=== PATIENT | male | born 1950 | race Caucasian/White ===

== ENCOUNTER → 2018-07-05 14:35 | Outpatient (CLI) | payer MEDICARE, BC, SELFPAY ==
[2018-07-05 17:08] LABS: Blood Urea Nitrogen 16 mg/dL (7-18); Creatinine,Serum 1.25 mg/dL (0.70-1.30); Estimated Glomerular Filt Rate 58 ml/min (>60); GFR (African American) 70 ML/MIN (>60)
== END ==
PROVIDERS: Visit Provider Family Medicine
DX: Z01.818 Encounter for other preprocedural examination (principal)
CPT/HCPCS: 36415; 82565; 84520

== ENCOUNTER → 2018-07-09 08:24 | Outpatient (CLI) | payer MEDICARE, BC, SELFPAY ==
--- NOTE | 2018-07-09 08:28 | CT_ITS ---
CT abdomen w con CLINICAL INDICATION: ITS.REASON: ELEVATED AMYLASE, UPPER ABD PAIN ORDERING PHYSICIAN: Richy Wang MD PATIENT AGE: 67 years COMPARISON: None TECHNIQUE: Axial images obtained with sagittal and coronal reformats. All CT scans at the facility use one or more dose reduction, viz: automated exposure control, ma/kV adjustment per patient size (including targeted exams where dose is matched to indication, i.e. head), or iterative reconstruction technique. PROCEDURE: Oral Contrast: Redicat IV Contrast: 75 mL's of Isovue-370. Images are obtained at 30 seconds, 60 seconds, and 5 minute delayed following the intravenous ministration of contrast FINDINGS: There is a 4 mm noncalcified nodule in the right lung base posterior laterally with some groundglass density noted at this region around the nodule nonspecific. Liver, spleen, and adrenal glands have an unremarkable appearance. There is no evidence of pancreatic mass or peripancreatic edema or inflammation. There is a small calcific density in the head of the pancreas which is nonspecific. No peripancreatic fluid collections. There are small parapelvic renal cysts which are nonspecific. The kidneys have an otherwise unremarkable appearance. 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 The superior mesenteric artery has an unremarkable appearance. Atheromatous changes involve the abdominal aorta. The renal arteries are fairly small with mild stenosis of the ostium of the right renal artery. No acute bony anomalies. IMPRESSION: 1. No evidence of pancreatitis or pancreatic mass. No peripancreatic fluid collections. 2. 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
== END ==
PROVIDERS: PCP Family Medicine; Visit Provider Family Medicine
DX: R10.10 Upper abdominal pain, unspecified (principal); R74.8 Abnormal levels of other serum enzymes
CPT/HCPCS: 74160; Q9967

== ENCOUNTER → 2018-10-11 08:14 | Outpatient (POV) | payer MEDICARE, BC, SELFPAY | PROVIDERS: Visit Provider Nurse Practitioner Acute Care | DX: Z00.00 Encounter for general adult medical examination without abnormal findings (principal) ==

== ENCOUNTER → 2018-11-09 11:52 | Outpatient (CLI) | payer MEDICARE, BC, SELFPAY ==
[2018-11-09 13:10] LABS: Alanine Aminotransferase 47 U/L (12-78); Albumin Level 4.2 gm/dL (3.4-5.0); Alkaline Phosphatase 67 U/L (46-116); Amylase 131 U/L (25-115); Aspartate Amino Transferase 26 U/L (15-37); Bilirubin,Direct 0.2 mg/dL (0.0-0.2); Bilirubin,Indirect 0.5 mg/dL (0.0-0.9); Bilirubin,Total 0.7 mg/dL (0.2-1.0); Total Protein,Serum 7.5 gm/dL (6.4-8.2)
[2018-11-09 13:17] LABS: Lipase 885 u/L (73-393)
== END ==
PROVIDERS: Visit Provider Internal Medicine Gastroenterology
DX: R94.5 Abnormal results of liver function studies (principal)
CPT/HCPCS: 36415; 80076; 82150; 83690

== ENCOUNTER → 2018-12-14 10:09 | Outpatient (CLI) | payer MEDICARE, BC, SELFPAY ==
[2018-12-14 10:46] LABS: Basophils # 0.1 K/mm3 (0-0.2); Basophils % 1.1 % (0.1-2.0); Eosinophils # 0.4 K/mm3 (0.0-0.4); Eosinophils % 7.5 % (0.1-12.0); Hematocrit 45.3 % (42.0-52.0); Lymphocytes # 2.1 K/mm3 (0.7-4.5); Lymphocytes % 37.2 % (10-50); Mean Corpuscular HGB Conc 33.2 g/dL (31.8-35.4); Mean Corpuscular Hemoglobin 29.2 pg (27.0-31.2); Mean Corpuscular Volume 88.1 fl (80-94); Mean Platelet Volume 7.5 fl (7.4-10.4); Monocytes # 0.3 K/mm3 (0.1-1.0); Monocytes % 5.3 % (1.7-9.3); Neutrophils # 2.8 K/mm3 (1.8-7.8); Platelet Count 279 K/mm3 (142-424); Red Blood Count 5.14 M/mm3 (4.60-6.20); Red Cell Distribution Width 14.5 % (11.5-17.5); White Blood Count 5.8 K/mm3 (4.8-10.8)
[2018-12-14 11:36] LABS: Alanine Aminotransferase 35 U/L (12-78); Albumin Level 3.9 gm/dL (3.4-5.0); Albumin/Globulin Ratio 1.3 (1.1-1.8); Alkaline Phosphatase 56 U/L (46-116); Amylase 90 U/L (25-115); Anion Gap 13.2 mEq/L (5-15); Aspartate Amino Transferase 23 U/L (15-37); Bilirubin,Total 0.7 mg/dL (0.2-1.0); Blood Urea Nitrogen 18 mg/dL (7-18); Calcium 9.2 mg/dL (8.5-10.1); Carbon Dioxide 27 mmol/L (21.0-32.0); Chloride 107 mmol/L (98-107); Creatinine,Serum 1.21 mg/dL (0.70-1.30); Estimated Glomerular Filt Rate 60 ml/min (>60); GFR (African American) 72 ML/MIN (>60); Globulin 3.1 gm/dl (1.3-3.2); Glucose 119 mg/dL (74-106); Lipase 224 u/L (73-393); Potassium 4.2 mmoL/L (3.5-5.1); Sodium 143 mmol/L (136-145)
== END ==
PROVIDERS: Visit Provider Nurse Practitioner Acute Care
DX: R94.5 Abnormal results of liver function studies (principal)
CPT/HCPCS: 36415; 80053; 82150; 83690; 85025

== ENCOUNTER → 2019-01-25 08:39 | Outpatient (POV) | payer MEDICARE, BC, SELFPAY | PROVIDERS: Visit Provider Otolaryngology | DX: Z00.00 Encounter for general adult medical examination without abnormal findings (principal) ==

== ENCOUNTER → 2020-02-21 11:10 | Outpatient (CLI) | payer MEDICARE, BC, SELFPAY ==
[2020-02-21 13:14] LABS: Uric Acid 8.4 mg/dl (3.5-8.5)
== END ==
PROVIDERS: Visit Provider Podiatrist Foot & Ankle Surgery
DX: Z01.818 Encounter for other preprocedural examination (principal)
CPT/HCPCS: 36415; 84550

== ENCOUNTER → 2021-05-22 08:26 | Outpatient (CLI) | payer MEDICARE, BC, SELFPAY | PROVIDERS: PCP Family Medicine; Visit Provider Nurse Practitioner | DX: Z20.822 Contact with and (suspected) exposure to COVID-19 (principal) | CPT/HCPCS: C9803; U0003; U0005 ==

== ENCOUNTER → 2021-08-20 11:06 | Outpatient (CLI) | payer MEDICARE, BC, SELFPAY ==
[2021-08-20 12:14] LABS: Uric Acid 4.2 mg/dl (3.5-8.5)
== END ==
PROVIDERS: Visit Provider Podiatrist Foot & Ankle Surgery
DX: M10.9 Gout, unspecified (principal)
CPT/HCPCS: 36415; 84550

== ENCOUNTER → 2021-10-28 11:44 | Outpatient (CLI) | payer MEDICARE, BC, SELFPAY | PROVIDERS: PCP Family Medicine; Visit Provider Nurse Practitioner | DX: Z20.822 Contact with and (suspected) exposure to COVID-19 (principal) | CPT/HCPCS: C9803; U0003; U0005 ==

== ENCOUNTER → 2023-03-31 12:40 | Outpatient (CLI) | payer MEDICARE, BC, SELFPAY ==
--- NOTE | 2023-03-31 12:44 | CT_ITS ---
FINAL REPORT TECHNIQUE: Axial CT images were obtained through the sinuses/facial bones. Coronal reformats were obtained. This study was performed with techniques to keep radiation doses as low as reasonably achievable (ALARA). Individualized dose reduction techniques using automated exposure control or adjustment of mA and/or kV according to the patient's size were employed. CLINICAL HISTORY: NASAL POLYPS, SINUSITIS FINDINGS: Complete opacification of the right maxillary sinus with bony wall thickening and expansion of the right maxillary ostium with opacification extending into the right nasal cavity. Findings could be due to severe chronic sinusitis or large polyp. This likely contributes to obstruction of the right OMC. Mild mucosal thickening and partial opacification of the bilateral ethmoid air cells and right frontal sinus. Remaining sinuses are clear. Nasal septum is deviated to the left. Probable nasal polyposis. IMPRESSION: Complete opacification of the right maxillary sinus extending into the right nasal air passage. Differentials would include advanced chronic sinusitis versus polyp. Reviewed, Interpreted and Dictated by Richy Briggs MD Transcribed by Theodore Mcgregor Authenticated and [facility]
== END ==
PROVIDERS: PCP Family Medicine; Visit Provider Family Medicine
DX: J33.9 Nasal polyp, unspecified (principal); J32.9 Chronic sinusitis, unspecified
CPT/HCPCS: 70486

== ENCOUNTER 2025-05-03 07:13 | Outpatient (CLI) | payer MEDICARE, BC, SELFPAY ==
--- NOTE | 2025-05-03 | CA_ITS ---
APPROVED REPORT Exam: Exercise Treadmill Technologist: Nery Sethi Stress Nurse: Mandi Nicole Ht: 5 ft 8 in Wt: 170 lbs BSA: 1.91 m2 HR: 60 bpm BP: 184/90 mmHg Stress Test Details Test: Exercise stress testing was performed using a Shade protocol. HR Resting HR: 60 bpm Max Heart Rate (APMHR): 146.824453 bpm Max HR Achieved: 138 bpm Target HR (85% APMHR): 124.332411 bpm % of APMHR: 94.52 Recovery HR: 103 bpm BP Resting BP: 184.0/90.0 mmHg Max BP: 200.0/80.0 mmHg Recovery BP: 188.0/109.0 mmHg ECG Resting ECG: Sinus rhythm, no ectopy Stress ECG Conclusion Lungs CTA prior to test start. Blood pressure elevated, patient did not take his meds this a.m.. 0902 - phoned Zaid Rivera PA-C with blood pressure readings. Ok to proceed with GXT myoview. Test should be discontinued if systolic blood pressure is greater than 210 systolic. Symptoms: None Arrhythmias/Ectopy: PVC ST-T Changes: Less than 0.[address] segment changes. Conclusion: DTS = 5 Abnormal blood pressure response. Electronically signed by : Kristal Nguyen MD 05/03/2025 11:56:23
--- OUTSIDE RECORDS SUMMARY | 2025-05-03 07:15 | XMS_ITS | Clinical Summary ---
Author Organization [facility] yste Address [address] [place] [address] Care Team Providers Care Entry Level Account Representative Name Role Phone David Wang MD Primary Care Provider [phone] Medications sodium-potassiu m-magnesium sulfates (Suprep Bowel Prep Kit) 17.5-3.13-1.6 GM/177ML solution oral solutionIndicat ions:Screening for colon cancer Take 1 bottle by mouth Take As Directed. Follow instructions that were mailed to your home. If you didn't receive these call [phone]. 354 mL Active Social History Tobacco Use Types Packs/Day Years Used Date Smoking Tobacco: Never Assessed Abuse Screen Answer Date Recorded Unsafe at Home or Work/School Not on file Feels Threatened by Someone? Not on file 07/2023 Does Anyone Keep You from Co ntacting Others or Doint Things Outside the Home? Not on file 06/17/2023 Physical Sign of Abuse Present Not on file 1 Housing Stability Answer Date Recorded Current Living Arrangements Not on file 06/07 Potentially Unsafe Housing Conditions Not on denae e 06/17/2023 Family and Community Support Answer Zak e Recorded Help with Day-to-Day Activities Not on file 06/17/2023 Lonely or Isolated Not on file 06/17/2023 Employment Answer Date Recorded Do you want help finding or keeping work or a tyler b? Not on file 06/17/2023 Disabilities Answer Date Recorded Concentrating, Remembering, or Making Decisions Difficulty Not on file 06/17/2023 Doing Errands Independently Difficulty Not on fi le 06/17/2023 Education Answer Date Recorded Help with school or training? Not on file Preferred Language Not on file 06/17/2023 Sex and Gender Information Value Date Recorded Sex Assigned at Not on file Legal Sex Male 11:41 AM EDT Gender Identity Not on file Sexual Orientation Not on file Plan of Treatment Health Maintenance Due Date Last Done Comments TDAP/TD VACCINES (1 - Tdap) 1969 COLOGUARD 1995 COLON CANCER SCREENING 5 YEA R SIGMOIDOSCOPY 1995 CT COLONOGRAPHY 1995 FECAL OCCULT BLOOD TEST 1995 FIT Testing (1 year) 1995 Pneumococcal Vaccine 50+ (1 of 1 - PCV) 2000 ZOSTER VACCINE (1 of 2) 2000 AAA SCREEN ONCE 2015 ANNUAL PHYSICAL 04/19/2021 HEPATITIS C SCREENING 04/19/2021 COVID-19 Vaccine ( season) 2024, 10/03/2020 INFLUENZA VACCINE 06/07/2025 06/28/2018 COLONOSCOPY 04/25/2031 04/25/2021 COLORECTAL CANCER SCREENING 04/25/2031 Procedures Procedure Name Priority Date/Time Associated Diagnosis Comments SCANNED - COLONOSCOPY 04/25/2021 from Last 3 Months or Most Recently Relevant to Health Maintenance Results * SCANNED - COLONOSCOPY (04/25/2021) Florin Bolton MD CHART REVIEW TABS Final Result from Last 3 Months or Most Recently Relevant to Health Maintenance Insurance MEDICARE A & B [facility] Care Teams Entry Level Account Representative Relationship Specialty Start Date End Date David Wang MD [facility] [address] [facility] [address] [place] [address] PCP - General 05/29/15
--- NOTE | 2025-05-03 07:30 | NM_ITS ---
APPROVED REPORT Exam: Nuclear Stress Test Indication: abn ecg..high bp..high cholesterol Patient Location: Outpatient Stress Tech: Nery Sethi [place] Tech:GEOVANY Montesinos RT(R)(N) Ht: 5 ft 8 in Wt: 170 lbs HR: 61 bpm BP: 195/81 mmHg BSA: 1.91 m2 TID: 0.89 BMI: 25.8 History: abn ecg..high bp..high cholesterol Procedure: Patient exercised on Shade protocol 5:50 minutes and sec, resting heart rate 61 bpm, resting blood pressure 195/81 mmHg, with exercise maximum heart rate achived was 138 bpm which is 94 % of the maximum predicted heart rate and blood pressure was 200/80 mmHg. Test was stopped due to fatigue. Patient denied any complaint of chest pain. Patient has average exercise capacity, achieved 7.1 METs of workload on treadmill, the blood pressure response to exercise was exaggerated. Cardiac Stress and Resting SPECT Images: Cardiac Stress and Resting SPECT images were obtained using technetium 99m Myoview 32.6 mCi stress and 10.95 mCi at rest. Raw images demonstrate significant soft tissue overlap of the cardiac borders. This may affect diagnostic interpretation of the study findings. Resting and stress imaging in supine positions demonstrate medium sized, mild, tapered fixed perfusion defect in the basal inferior LV wall. This is no longer visualized with prone stress imaging. Findings are suggestive of diaphragmatic attenuation. Gated imaging demonstrates normal global and regional LV systolic function. LVEF is calculated 56%. Conclusion: Diaphragmatic attenuation is present. No evidence of fixed or reversible perfusion defects. Gated imaging demonstrates normal global and regional LV systolic function. LVEF is calculated 56%. Of note, the patient had a markedly elevated BP at baseline (BP 195/81 mmHg). Further BP control is recommended. Electronically signed by : Kristal Nguyen MD 05/03/2025 12:20:01
[2025-05-03] MEDS: ISOTOPE MYOVIEW (PER STUDY) 1 DOSE IV (10:08)
[2025-05-03] MEDS: SODIUM CHLORIDE 0.9% 10ML SYR (RAD ONLY) 10 ML IV ×2 (10:08)
== END 2025-05-03 23:59 | disposition home or self-care (01) ==
LOC: RAD 07:14
PROVIDERS: PCP Family Medicine; Visit Provider Physician Assistant
DX: I49.3 Ventricular premature depolarization (principal); I10 Essential (primary) hypertension; E78.00 Pure hypercholesterolemia, unspecified; R94.31 Abnormal electrocardiogram [ECG] [EKG]
CPT/HCPCS: 78452; 93017; 93018; A9502